=== PATIENT | male | born 1990 | race Caucasian/White ===

== ENCOUNTER 2016-12-05 14:31 | Inpatient (IN) | payer OTHER ==
[~2016-12-05] VITALS: Ht 167.6 cm; Wt 90.7 kg
[2016-12-05 14:37] VITALS: BP_SYST 120
[2016-12-05] MEDS ORDERED: ONDANSETRON HCL 4 MG/2 ML VIAL IVP ONE (14:45)
[2016-12-05] MEDS ORDERED: MORPHINE 4 MG/ML INJ. SYRINGE IVP ONE (14:45)
[2016-12-05] MEDS ORDERED: NACL 0.9% 1,000 ML IV ONE (15:00)
[2016-12-05] MEDS ORDERED: LIDOCAINE 4% TOPICAL 50 ML BOTTLE MM ONE (15:00)
[2016-12-05 15:01] LABS: BASOPHILS # (AUTO) 0.1 K/uL (0.0-0.2); EOSINOPHILS # (AUTO) 0.2 K/uL (0.0-0.4); EOSINOPHILS % (AUTO) 3.3 % (0.0-4.0); HEMATOCRIT 43.5 % (36-54); HEMOGLOBIN 14.8 g/dL (14.0-18.0); LYMPHOCYTES # (AUTO) 3.4 K/uL (1.0-5.5); LYMPHOCYTES % (AUTO) 46.2 % (20.5-51.5); MEAN CORPUSCULAR HEMOGLOBIN 29 pg (27-31); MEAN CORPUSCULAR HGB CONC 34 % (32-36); MEAN CORPUSCULAR VOLUME 86 fL (79.0-98.0); MONOCYTES # (AUTO) 0.5 K/uL (0.0-1.0); MONOCYTES % (AUTO) 6.9 % (1.7-9.3); NEUTROPHILS # (AUTO) 3.2 K/uL (1.8-7.7); NEUTROPHILS % (AUTO) 42.6 % (40.0-70.0); PLATELET COUNT (AUTO) 227 K/uL (130-430); RED BLOOD CELL COUNT(AUTO) 5.07 MIL/uL (4.2-6.2); RED CELL DISTRIBUTION WIDTH 12.3 % (9.0-15.0); WHITE BLOOD COUNT (AUTO) 7.4 K/uL (4.8-10.8)
[2016-12-05 15:05] LABS: CALCIUM 8.6 mg/dL (8.4-11.0); CREATININE 1.11 mg/dL (0.55-1.30); POTASSIUM 3.3 mmol/L (3.5-5.1)
[2016-12-05 15:09] LABS: INR 1.1 (0.80-1.20); PROTHROMBIN TIME 11.5 SECS (9.5-12.5)
[2016-12-05 15:10] LABS: TOTAL BILIRUBIN 0.4 mg/dL (0.0-1.0); TOTAL PROTEIN, SERUM 7.6 g/dL (6.4-8.3)
[2016-12-05] MEDS ORDERED: LIDOCAINE 1% 10 MG/ML, 20 ML MDV INJ ONE (17:00)
[2016-12-05] MEDS ORDERED: LIDOCAINE 1%, 20 ML MDV 20 ML ONE (17:06)
[2016-12-05] MEDS ORDERED: BACITRACIN 1 GM OINT TP ONE ×2 (18:30→18:32)
[2016-12-05] MEDS ORDERED: CEFAZOLIN 2 GM IVPB PREMIX 50 ML IV ONE (20:15)
[2016-12-05] MEDS ORDERED: CEFAZOLIN 1 GM IVPB PREMIX 50 ML IV ONE (20:15)
[2016-12-05] MEDS ORDERED: ACETAMINOPHEN 325 MG TABLET PO PRN (20:30)
[2016-12-05] MEDS ORDERED: ONDANSETRON HCL 4 MG/2 ML VIAL IVP PRN (20:30)
[2016-12-05] MEDS ORDERED: POTASSIUM CHLORIDE 20 MEQ TAB.PRT.SR PO ONE (20:30)
[2016-12-05] MEDS ORDERED: CEFAZOLIN 1 GM IVPB PREMIX 100 ML IV ONE (20:35)
[2016-12-05] MEDS ORDERED: VANCOMYCIN HCL 1 GM/NS PREMIX 250 ML IV ONE (20:45)
[2016-12-05] MEDS ORDERED: BACITRACIN ZINC 15 GM TOPICAL OINTMENT TP SCH (21:00)
[2016-12-05 21:01] VITALS: BP_SYST 116
[2016-12-05] MEDS: POTASSIUM CHLORIDE 10 MEQ in NACL 0.9% 1,000 ML IV SCH (21:33)
[2016-12-05] MEDS ORDERED: CEFAZOLIN 1 GM IV ONE (21:51)
[2016-12-05] MEDS ORDERED: VANCOMYCIN HCL 1000 MG/VIAL IV ONE (21:51)
[2016-12-05] MEDS: ceFAZolin SODIUM 1 GM in D5W 50 ML IV SCH (22:00)
[2016-12-05] MEDS: MORPHINE 4 MG/ML INJ. SYRINGE IVP PRN (22:58)
[2016-12-05 23:41] VITALS: BP_SYST 103
[2016-12-06 04:46] VITALS: BP_SYST 100
[2016-12-06] MEDS ORDERED: KCL 20 mEq in 100 mL (PREMIX) 100 ML IV ONE (05:18)
[2016-12-06] MEDS: POTASSIUM CHLORIDE 10 MEQ in NACL 0.9% 1,000 ML IV SCH (06:18)
[2016-12-06] MEDS: ceFAZolin SODIUM 1 GM in D5W 50 ML IV SCH ×2 (06:20→14:00)
[2016-12-06 06:48] LABS: CALCIUM 8.2 mg/dL (8.4-11.0); CREATININE 1.05 mg/dL (0.55-1.30); POTASSIUM 4.1 mmol/L (3.5-5.1)
[2016-12-06 07:05] LABS: BASOPHILS % (AUTO) 0.4 % (0.0-2.0); EOSINOPHILS # (AUTO) 0.2 K/uL (0.0-0.4); EOSINOPHILS % (AUTO) 2.1 % (0.0-4.0); HEMATOCRIT 39.6 % (36-54); HEMOGLOBIN 13.5 g/dL (14.0-18.0); LYMPHOCYTES # (AUTO) 2.3 K/uL (1.0-5.5); MEAN CORPUSCULAR HEMOGLOBIN 30 pg (27-31); MEAN CORPUSCULAR HGB CONC 34 % (32-36); MEAN CORPUSCULAR VOLUME 87 fL (79.0-98.0); MONOCYTES # (AUTO) 0.6 K/uL (0.0-1.0); MONOCYTES % (AUTO) 7.9 % (1.7-9.3); NEUTROPHILS % (AUTO) 60.6 % (40.0-70.0); PLATELET COUNT (AUTO) 197 K/uL (130-430); RED BLOOD CELL COUNT(AUTO) 4.55 MIL/uL (4.2-6.2); RED CELL DISTRIBUTION WIDTH 12.5 % (9.0-15.0); WHITE BLOOD COUNT (AUTO) 8.1 K/uL (4.8-10.8)
[2016-12-06 07:11] LABS: BILIRUBIN,URINE NEGATIVE (NEGATIVE); BLOOD, URINE NEGATIVE (NEGATIVE); CLARITY/URINE CLEAR (CLEAR); COLOR,URINE YELLOW (YELLOW); GLUCOSE,URINE NEGATIVE (NEGATIVE); KETONES,URINE NEGATIVE (NEGATIVE); LEUKOCYTE ESTERASE ,URINE NEGATIVE (NEGATIVE); NITRITE, URINE NEGATIVE (NEGATIVE); PROTEIN URINE NEGATIVE (NEGATIVE); UROBILINOGEN,URINE 0.2 (0.2-1.0)
[2016-12-06 11:25] VITALS: BP_SYST 120
[2016-12-06] MEDS ORDERED: DIPH-TET-PERTUS Vaccine 0.5 ML VIAL (ADACEL) I.M. ONE (11:45)
[2016-12-06] MEDS ORDERED: GLYCOPYRROLATE 0.2 MG/ML VIAL IJ ONE (13:30)
[2016-12-06] MEDS ORDERED: PHENYLEPHRINE HCL 10 MG/ML VIAL (NEOSYNEPHRINE) IV ONE (13:30)
[2016-12-06] MEDS ORDERED: ROCURONIUM BROMIDE 10 MG/ML (ZEMURON) IV ONE (13:30)
[2016-12-06] MEDS ORDERED: MIDAZOLAM HCL 5 MG/5 ML VIAL IVP ONE (13:30)
[2016-12-06] MEDS ORDERED: NEOSTIGMINE METHYLSULFATE 1 MG/ML, 10 ML VIAL IVP ONE (13:30)
[2016-12-06] MEDS ORDERED: SEVOFLURANE 15 MIN GAS INH ONE (13:30)
[2016-12-06] MEDS ORDERED: ONDANSETRON HCL 4 MG/2 ML VIAL IVP ONE (13:30)
[2016-12-06] MEDS ORDERED: BUPIVACAINE /PF 0.5% 30 ML VIAL INJ ONE (13:30)
[2016-12-06] MEDS ORDERED: fentaNYL CITRATE/PF 100 MCG/2 ML AMP IVP ONE (13:30)
[2016-12-06] MEDS ORDERED: POLYMYXIN 500,000/BACIT.10,000 UNITS in NS IRR 1 L IR ONE (13:36)
[2016-12-06] MEDS ORDERED: LR 1,000 ML IV SCH (14:06)
[2016-12-06] MEDS ORDERED: MORPHINE 2 MG/ML INJ. SYRINGE IVP PRN ×3 (14:15)
[2016-12-06] MEDS ORDERED: METOCLOPRAMIDE HCL 10 MG/2 ML VIAL IVP PRN (14:15)
[2016-12-06 15:20] VITALS: BP_SYST 96
[2016-12-06] MEDS: MORPHINE 4 MG/ML INJ. SYRINGE IVP PRN (19:00)
[2016-12-06 19:30] VITALS: BP_SYST 118
[2016-12-06 20:49] VITALS: BP_SYST 114
== END 2016-12-06 21:15 | disposition home or self-care (01) | DRG 906 ==
LOC: SED 14:31 → SMU 20:16
PROVIDERS: ADMIT Internal Medicine; ATTEND Internal Medicine
PROC: 0KCK0ZZ Extirpation of Matter from Right Abdomen Muscle, Open Approach (ICD-10-PCS; 2016-12-05)
PROC: 0WQFXZZ Repair Abdominal Wall, External Approach (ICD-10-PCS; 2016-12-05)
PROC: 0KCC0ZZ Extirpation of Matter from Right Hand Muscle, Open Approach (ICD-10-PCS; principal; 2016-12-06 17:15)
DX: S61.441A Puncture wound with foreign body of right hand, initial encounter (principal); S31.140A Puncture wound of abdominal wall with foreign body, right upper quadrant without penetration into peritoneal cavity, initial encounter; S51.842A Puncture wound with foreign body of left forearm, initial encounter; W34.09XA Accidental discharge from other specified firearms, initial encounter; Y93.89 Activity, other specified; Y92.89 Other specified places as the place of occurrence of the external cause; Y99.8 Other external cause status
CPT/HCPCS: 36415; 71010; 71250-TC; 73090; 74000-TC; 76000; 80048; 80053; 81003; 85025; 85610-TC; 85730-TC; 87040-TC; 87081; 88300; 90715; 96365; 96375; 99291; J0690; J2001; J2250; J2270; J2370; J2405; J2710; J3010; J3370; J3480; J3490; J7030; J7050; J7060